=== PATIENT | male | born 1975 | race African-American/Black ===

== ENCOUNTER 2017-03-11 10:50 | Emergency (ER) | payer SELFPAY, OTHER ==
[2017-03-11 11:06] LABS: POC GLUCOSE 180 mg/dL (70-99)
== END 2017-03-11 11:30 | disposition home or self-care (01) ==
LOC: ER 10:50
DX: H10.9 Unspecified conjunctivitis (principal)
CPT/HCPCS: 82962; 99283

== ENCOUNTER 2017-05-02 09:18 | Emergency (ER) | payer SELFPAY ==
[2017-05-02] MEDS: IPRATRPIUM/ALBUTEROL 0.5/2.5MG 3 ML NEBU. NEB ×2 (09:41→10:09)
[2017-05-02 10:36] LABS: ADD MAN DIFF? NO
[2017-05-02 10:39] LABS: BASO % 1 % (0-3); EOS # 0.2 x10^3/uL (0.0-0.7); EOS % 4 % (0-3); HEMOGLOBIN 16.4 g/dL (13.0-17.5); LYMPH # 1.6 x10^3/uL (1.0-4.8); LYMPH % 37 % (24-48); MEAN CORPUSCULAR HEMOGLOBIN 32 pg (25-35); MEAN CORPUSCULAR HGB CONC 34 g/dL (31-37); MEAN CORPUSCULAR VOLUME 93 fL (79-100); MONO # 0.6 x10^3/uL (0.0-1.1); MONO % 13 % (0-9); NEUT # 2.1 x10^3uL (1.8-7.7); NEUT % 46 % (31-73); PLATELET COUNT 205 x10^3/uL (140-400); RED BLOOD COUNT 5.18 x10^6/uL (4.30-5.70); RED CELL DISTRIBUTION WIDTH 12.6 % (11.5-14.5); WHITE BLOOD COUNT 4.4 x10^3/uL (4.0-11.0)
[2017-05-02 10:52] LABS: D-DIMER 0.29 ug/mlFEU (0.00-0.50)
[2017-05-02 10:53] LABS: ANION GAP 5 (6-14); BLOOD UREA NITROGEN 6 mg/dL (8-26); BUN/CREATININE RATIO 5 (6-20); CALCIUM 8.1 mg/dL (8.5-10.1); CARBON DIOXIDE 32 mmol/L (21-32); CHLORIDE 103 mmol/L (98-107); CREATININE 1.2 mg/dL (0.7-1.3); GFR 81.6; GLUCOSE 147 mg/dL (70-99); POTASSIUM 3.7 mmol/L (3.5-5.1); SODIUM 140 mmol/L (136-145)
[2017-05-02 10:58] LABS: ALBUMIN 3.5 g/dL (3.4-5.0); ALBUMIN/GLOBULIN RATIO 0.9 (1.0-1.7); ALK PHOS 57 U/L (46-116); ALT (SGPT) 57 U/L (16-63); AST (SGOT) 39 U/L (15-37); TOTAL BILIRUBIN 0.8 mg/dL (0.2-1.0); TOTAL PROTEIN 7.4 g/dL (6.4-8.2)
== END 2017-05-02 11:30 | disposition home or self-care (01) ==
LOC: ER 09:18
DX: J32.9 Chronic sinusitis, unspecified (principal)
CPT/HCPCS: 36415; 71046; 80053; 85025; 85379; 94640; 99285-25; J7620

== ENCOUNTER 2018-07-19 18:21 | Emergency (ER) | payer SELFPAY ==
[~2018-07-19] VITALS: Ht 200.7 cm; Wt 181.4 kg
[~2018-07-19 18:21] MED LIST: ALBU2.5V8 INH; AMOX1TAB61 PO; ERYT1OIN6 OP; INHA1SPA94 MC; PRED20TA PO
[2018-07-19 18:31] VITALS: BP 161/89
[2018-07-19 18:47] LABS: BASO % 1 % (0-3); EOS # 0.2 x10^3/uL (0.0-0.7); EOS % 4 % (0-3); HEMATOCRIT 46.7 % (39.0-53.0); HEMOGLOBIN 15.6 g/dL (13.0-17.5); LYMPH # 1.6 x10^3/uL (1.0-4.8); LYMPH % 36 % (24-48); MEAN CORPUSCULAR HEMOGLOBIN 31 pg (25-35); MEAN CORPUSCULAR HGB CONC 33 g/dL (31-37); MEAN CORPUSCULAR VOLUME 92 fL (79-100); MONO # 0.4 x10^3/uL (0.0-1.1); MONO % 8 % (0-9); NEUT # 2.3 x10^3uL (1.8-7.7); NEUT % 51 % (31-73); PLATELET COUNT 225 x10^3/uL (140-400); RED BLOOD COUNT 5.09 x10^6/uL (4.30-5.70); RED CELL DISTRIBUTION WIDTH 12.4 % (11.5-14.5); WHITE BLOOD COUNT 4.6 x10^3/uL (4.0-11.0)
[2018-07-19 18:55] LABS: CALCIUM 8.8 mg/dL (8.5-10.1); CREATININE 1.1 mg/dL (0.7-1.3); GFR 89.7; POTASSIUM 3.8 mmol/L (3.5-5.1)
[2018-07-19 19:02] LABS: ALBUMIN 3.5 g/dL (3.4-5.0); ALBUMIN/GLOBULIN RATIO 0.9 (1.0-1.7); TOTAL BILIRUBIN 0.6 mg/dL (0.2-1.0); TOTAL PROTEIN 7.2 g/dL (6.4-8.2)
[2018-07-19] MEDS ORDERED: CYCL10TA2 PO (19:31)
[2018-07-19] MEDS ORDERED: HYDR-3164 PO (19:31)
--- NOTE | 2018-07-19 19:31 | PHYS DOC ---
Past Medical History Past Medical History: No Pertinent History, Other Additional Past Medical Histor: back pain, borderline diabetic Past Surgical History: No Surgical History Alcohol Use: None Drug Use: Marijuana Social History Narrative: last use this morning Adult General Chief Complaint Chief Complaint: CHEST PAIN HPI HPI Patient is a 42 year old Citizen Of [place] male with history of prediabetes who presents with right shoulder, chest and neck pain intermittent 3 days. Pain is worse with position change movement and standing. Patient states he has been guarding the past 3 days and believes his symptoms are related to that. Patient 6 foot 7 approximately 400 pounds. He denies exertional chest pain shortness of breath palpitations. He denies left-sided chest pain, nausea or sweats. No prior cardiac testing. Cardiac risk factors include age and father dying of coronary disease at age 62. Patient smokes marijuana but denies tobacco use. Denies alcohol and other illicit drug use. No medications or therapy sticking prior to ED arrival [] Review of Systems Review of Systems Review of symptoms as per history of present illness. All other review symptoms are negative. All other systems were reviewed and found to be within normal limits, except as documented in this note. Allergies Allergies Allergies Coded Allergies Type Severity Reaction Last Updated Verified No Known Drug Allergies 06/09/15 No Physical Exam Physical Exam Constitutional: Well developed, well nourished, no acute distress, non-toxic appearance. [] HENT: Normocephalic, atraumatic, bilateral external ears normal, oropharynx moist, no oral exudates, nose normal. [] Eyes: PERRLA, EOMI, conjunctiva normal, no discharge. [] Neck: Normal range of motion, no tenderness, supple, no stridor. [] Cardiovascular:Heart rate regular rhythm, no murmur, right anterior subclavicular chest wall pain. [] Lungs & Thorax: Bilateral breath sounds clear to auscultation [] Abdomen: Bowel sounds normal, soft, no tenderness. [] Skin: Warm, dry, no erythema, no rash. [] Back: Right trapezius muscle pain/spasm, pain worse with palpation and movement reproduces patient's symptoms. No extremity weakness or loss of sensation.[] Extremities: No tenderness, negative Homans signs. [] Neurologic: Alert and oriented X 3, normal motor function, normal sensory function, no focal deficits noted. [] Psychologic: Affect normal, judgement normal, mood normal. [] Current Patient Data Vital Signs Vital Signs Date Time Temp Pulse Resp B/P (MAP) Pulse Ox O2 Delivery O2 Flow Rate FiO2 07/19/18 18:31 98.2 80 24 161/89 (113) 98 Room Air 98.2 Lab Values Laboratory Tests Test 07/19/18 18:41 White Blood Count 4.6 x10^3/uL (4.0-11.0) Red Blood Count 5.09 x10^6/uL (4.30-5.70) Hemoglobin 15.6 g/dL (13.0-17.5) Hematocrit 46.7 % (39.0-53.0) Mean Corpuscular Volume 92 fL (79-100) Mean Corpuscular Hemoglobin 31 pg (25-35) Mean Corpuscular Hemoglobin Concent 33 g/dL (31-37) Red Cell Distribution Width 12.4 % (11.5-14.5) Platelet Count 225 x10^3/uL (140-400) Neutrophils (%) (Auto) 51 % (31-73) Lymphocytes (%) (Auto) 36 % (24-48) Monocytes (%) (Auto) 8 % (0-9) Eosinophils (%) (Auto) 4 % (0-3) H Basophils (%) (Auto) 1 % (0-3) Neutrophils # (Auto) 2.3 x10^3uL (1.8-7.7) Lymphocytes # (Auto) 1.6 x10^3/uL (1.0-4.8) Monocytes # (Auto) 0.4 x10^3/uL (0.0-1.1) Eosinophils # (Auto) 0.2 x10^3/uL (0.0-0.7) Basophils # (Auto) 0.0 x10^3/uL (0.0-0.2) Sodium Level 142 mmol/L (136-145) Potassium Level 3.8 mmol/L (3.5-5.1) Chloride Level 103 mmol/L (98-107) Carbon Dioxide Level 28 mmol/L (21-32) Anion Gap 11 (6-14) Blood Urea Nitrogen 11 mg/dL (8-26) Creatinine 1.1 mg/dL (0.7-1.3) Estimated GFR (Cockcroft-Gault) 89.7 BUN/Creatinine Ratio 10 (6-20) Glucose Level 185 mg/dL (70-99) H Calcium Level 8.8 mg/dL (8.5-10.1) Total Bilirubin 0.6 mg/dL (0.2-1.0) Aspartate Amino Transferase (AST) 24 U/L (15-37) Alanine Aminotransferase (ALT) 39 U/L (16-63) Alkaline Phosphatase 61 U/L (46-116) Troponin I Quantitative < 0.017 ng/mL (0.000-0.055) Total Protein 7.2 g/dL (6.4-8.2) Albumin 3.5 g/dL (3.4-5.0) Albumin/Globulin Ratio 0.9 (1.0-1.7) L Laboratory Tests 07/19/18 18:41 Laboratory Tests 07/19/18 18:41 EKG EKG [EKG: Normal sinus rhythm, no acute ST-T wave changes.] Radiology/Procedures Radiology/Procedures [Chest x-ray: Mild central peribronchial opacities possible reactive airway or viral etiology per radiology report] Course & Med Decision Making Course & Med Decision Making Pertinent Labs and Imaging studies reviewed. (See chart for details) [Nonexertional, reproducible chest, neck or arm pain. Patient troponin is negative despite 3 days days of symptoms. Recommend supportive care PCP follow- up. Return precautions reviewed.] Dragon Disclaimer Dragon Disclaimer This electronic medical record was generated, in whole or in part, using a voice recognition dictation system. Departure Departure Impression: Primary Impression: Back pain Additional Impression: Chest pain of uncertain etiology Disposition: 01 HOME, SELF-CARE Condition: GOOD Referrals: NO PCP (PCP) Patient Instructions: Musculoskeletal Pain Additional Instructions: You were evaluated in the emergency department for chest shoulder and back pain. EKG, lab and imaging studies were performed and are nondiagnostic. Please ibuprofen for pain, and [place] and Flexeril as needed for additional relief. Follow up with your PCP in 3-5 days for further evaluation. Return to the ED if new or worsening symptoms. Scripts Cyclobenzaprine Hcl (CYCLOBENZAPRINE HCL) 10 Mg Tablet 1 TAB PO TID, #30 TAB Prov: NIKOLE GARCIA DO 07/19/18 Hydrocodone/Apap 5-325 (NORCO 5-325 TABLET) 1 Each Tablet 1 TAB PO BID, #15 TAB Prov: NIKOLE GARCIA DO 07/19/18 Problem Qualifiers NIKOLE GARCIA DO July 19, 2018 19:31
--- NOTE | 2018-07-19 22:53 | RAD ---
AP portable chest radiograph 07/19/2018 Clinical History: Chest pain. An AP erect portable digital radiograph of the chest was obtained. Comparison study is dated 05/02/2017. The cardiac and mediastinal silhouettes are within normal limits in size and configuration. Mild elevation of the right hemidiaphragm is noted. No acute pulmonary infiltrate is seen. No pleural effusion or pneumothorax is noted. The osseous structures are grossly intact. IMPRESSION: No acute abnormality is seen. Electronically signed by: Kaiden Mccormack MD (07/19/2018 10:50 PM) [facility]
--- NOTE | 2018-07-20 07:35 | EKG ---
[facility] [address] [place] [address] Test Date: 2018-07-19 Test Time: 18:32:02 Pat Name: GHADA STARK Department: Room: Gender: M [employer] Records Clerk: : [id number] Requested By: NIKOLE GRACIA Order Number: [id number] Reading MD: Chintan Benito Measurements Intervals [place] Rate: 72 P: 47 SD: 144 QRS: 56 QRSD: 96 T: 35 QT: 370 QTc: 407 Interpretive Statements SINUS RHYTHM Electronically Signed On 08-10-2018 12:24:05 CDT by Chintan Benito
== END 2018-07-19 19:48 | disposition home or self-care (01) ==
LOC: ER 18:21
DX: R07.89 Other chest pain (principal); M54.2 Cervicalgia; M25.511 Pain in right shoulder; F12.20 Cannabis dependence, uncomplicated; M54.9 Dorsalgia, unspecified
CPT/HCPCS: 36415; 71045; 80053; 84484; 85025; 93005; 99285-25